=== PATIENT | female | born 1995 | race Caucasian/White ===

== ENCOUNTER 2017-03-25 17:46 | Emergency (ER) | payer MEDICAID ==
[2015-10-17 12:19] VITALS: BMI 39.0
[~2017-03-25 17:46] MED LIST: IBUPROFEN600 MG PO; PERCOCET 5-3251 TAB PO; PHENERGAN25 M1 PO; PRENATAL COMPLE1 TAB PO; PSEUDO-GEST60 MG PO
[2017-03-25 18:37] LABS: BASOPHILS 0.2 % (0-2); EOSINOPHILS 1.7 % (0-7); HEMATOCRIT 40.4 % (36.0-48.0); HEMOGLOBIN 13.3 g/dL (12-16); IMMATURE GRANULOCYTES 0.3 % (0-5); LYMPHOCYTES 18.9 % (15-50); MCHC 32.9 g/dL (31.0-37.0); MCV 88.2 fL (80.0-100.0); MEAN PLATELET VOLUME 10.1 fL (7.4-10.4); MONOCYTES 5.2 % (2-11); NEUTROPHILS 73.7 % (40-80); PLATELET COUNT 257 10x3/uL (130-400); RBC 4.58 10x6/uL (4.00-5.40); RDW 12.9 % (11.5-14.5); WBC 10.2 10x3/uL (4.8-10.8)
[2017-03-25 19:27] LABS: HCG SERUM NEGATIVE (NEGATIVE)
== END 2017-03-25 20:05 | disposition home or self-care (01) ==
LOC: D.ER 17:46
PROVIDERS: Emergency Medicine
DX: N93.9 Abnormal uterine and vaginal bleeding, unspecified (principal)

== ENCOUNTER 2017-09-26 16:40 | Emergency (ER) | payer MEDICAID ==
[2015-10-17 12:19] VITALS: BMI 39.0
[2017-09-26 17:31] LABS: BASOPHILS 0.1 % (0-2); EOSINOPHILS 1.4 % (0-7); HEMOGLOBIN 13.4 g/dL (12-16); IMMATURE GRANULOCYTES 0.3 % (0-5); LYMPHOCYTES 28.5 % (15-50); MCH 29.9 pg (26.0-34.0); MCHC 34.4 g/dL (31.0-37.0); MCV 87.1 fL (80.0-100.0); MEAN PLATELET VOLUME 9.9 fL (7.4-10.4); MONOCYTES 5.1 % (2-11); NEUTROPHILS 64.6 % (40-80); PLATELET COUNT 251 10x3/uL (130-400); RBC 4.48 10x6/uL (4.00-5.40); RDW 13.2 % (11.5-14.5); WBC 7.9 10x3/uL (4.8-10.8)
[2017-09-26 17:35] LABS: APPEARANCE CLEAR (CLEAR); BILIRUBIN NEGATIVE (NEGATIVE); COLOR STRAW (YELLOW); GLUCOSE NEGATIVE (NEGATIVE); KETONE NEGATIVE (NEGATIVE); NITRITE NEGATIVE (NEGATIVE); PROTEIN NEGATIVE (NEGATIVE); UROBILINOGEN NORMAL (NORMAL)
[2017-09-26 17:39] LABS: HCG SERUM NEGATIVE (NEGATIVE)
== END 2017-09-26 18:40 | disposition home or self-care (01) ==
LOC: D.ER 16:40
PROVIDERS: Emergency Medicine
DX: N94.6 Dysmenorrhea, unspecified (principal)

== ENCOUNTER 2017-10-08 11:33 | Emergency (ER) | payer MEDICAID ==
[2015-10-17 12:19] VITALS: BMI 39.0
[2017-10-08 12:32] LABS: HCG URINE NEGATIVE (NEGATIVE)
== END 2017-10-08 15:00 | disposition home or self-care (01) ==
LOC: D.ER 11:33
PROVIDERS: Nurse Practitioner Family
DX: R52 Pain, unspecified (principal); S69.91XA Unspecified injury of right wrist, hand and finger(s), initial encounter; Y04.2XXA Assault by strike against or bumped into by another person, initial encounter; Y93.89 Activity, other specified; Y92.89 Other specified places as the place of occurrence of the external cause

== ENCOUNTER 2017-10-19 17:29 | Emergency (ER) | payer MEDICAID ==
[2015-10-17 12:19] VITALS: BMI 39.0
== END 2017-10-19 19:10 | disposition home or self-care (01) ==
LOC: D.ER 17:29
DX: R10.30 Lower abdominal pain, unspecified (principal)

== ENCOUNTER 2019-01-13 12:16 | Emergency (ER) | payer MEDICAID ==
[~2019-01-13] VITALS: Ht 160 cm; Wt 77.3 kg
[2019-01-13 12:31] VITALS: BP 152/89; Ht 160 cm; Wt 77.3 kg
[2019-01-13 13:13] LABS: BASOPHILS 0.1 % (0-2); EOSINOPHILS 2.3 % (0-7); HEMATOCRIT 38.1 % (36.0-48.0); HEMOGLOBIN 13.5 g/dL (12-16); LYMPHOCYTES 21.8 % (15-50); MCH 30.3 pg (26.0-34.0); MCHC 35.4 g/dL (31.0-37.0); MCV 85.4 fL (80.0-100.0); NEUTROPHILS 68.8 % (40-80); PLATELET COUNT 230 10x3/uL (130-400); RBC 4.46 10x6/uL (4.00-5.40); RDW 12.1 % (11.5-14.5); WBC 7.4 10x3/uL (4.8-10.8)
[2019-01-13 13:22] LABS: APPEARANCE CLEAR (CLEAR); BILIRUBIN NEGATIVE (NEGATIVE); COLOR STRAW (YELLOW); GLUCOSE NEGATIVE (NEGATIVE); KETONE NEGATIVE (NEGATIVE); NITRITE NEGATIVE (NEGATIVE); PROTEIN NEGATIVE (NEGATIVE); SPECIFIC GRAVITY 1.015 (1.005-1.020); UROBILINOGEN NORMAL (NORMAL)
[2019-01-13 13:29] LABS: ALBUMIN 3.8 g/dL (3.4-5.0); ANION GAP 15.4 mmol/L (8-16); BILIRUBIN - TOTAL 0.27 mg/dL (0.2-1.3); CALCIUM 9.5 mg/dL (8.5-10.1); CARBON DIOXIDE 26.3 mmol/L (21.0-32.0); CREATININE - SERUM 1.3 mg/dL (0.6-1.3); POTASSIUM - SERUM 3.7 mmol/L (3.5-5.1); PROTEIN - SERUM 7.4 g/dL (6.4-8.2)
== END 2019-01-13 16:29 | disposition home or self-care (01) ==
LOC: D.ER 12:16
PROVIDERS: Emergency Medicine
DX: O26.891 Other specified pregnancy related conditions, first trimester (principal); Z3A.08 8 weeks gestation of pregnancy; R10.2 Pelvic and perineal pain

== ENCOUNTER → 2019-07-07 15:04 | Outpatient (CLI) | payer MEDICAID ==
[2019-01-13 12:31] VITALS: BMI 30.1
[~2019-07-07 15:04] MED LIST changes: +AMOXICILLIN500 M1 PO
[2019-07-07 16:24] LABS: ALBUMIN 2.5 g/dL (3.4-5.0); ALKALINE PHOSPHATASE 188 U/L (46-116); ALT (SGPT) 88 U/L (10-68); BILIRUBIN - TOTAL 0.34 mg/dL (0.2-1.3); CALC OSMOLALITY 271 mosm/kg (275-300); CALCIUM 9.2 mg/dL (8.5-10.1); CARBON DIOXIDE 22.3 mmol/L (21.0-32.0); CHLORIDE - SERUM 104 mmol/L (98-107); CREATININE - SERUM 0.6 mg/dL (0.6-1.3); POTASSIUM - SERUM 3.8 mmol/L (3.5-5.1); PROTEIN - SERUM 6.9 g/dL (6.4-8.2); SODIUM 138 mmol/L (136-145); UREA NITROGEN 8 mg/dL (7-18); eGFR NON AFRICAN AMERICAN > 90 mL/min (90-120)
[2019-07-07 16:26] LABS: BILIRUBIN - DIRECT 0.09 mg/dL (0.00-0.30); BILIRUBIN - INDIRECT 0.25 mg/dL (0.00-1.00); URIC ACID 4.1 mg/dL (2.6-7.2)
[2019-07-07 16:27] LABS: GLUCOSE 70 mg/dL (74-106)
[2019-07-07 16:33] LABS: BASOPHILS 0.1 % (0-2); EOSINOPHILS 0.4 % (0-7); HEMATOCRIT 35.6 % (36.0-48.0); HEMOGLOBIN 12.3 g/dL (12-16); IMMATURE GRANULOCYTES 0.4 % (0-5); LYMPHOCYTES 13.2 % (15-50); MCH 28.6 pg (26.0-34.0); MCHC 34.6 g/dL (31.0-37.0); MCV 82.8 fL (80.0-100.0); MEAN PLATELET VOLUME 10.2 fL (7.4-10.4); MONOCYTES 4.8 % (2-11); NEUTROPHILS 81.1 % (40-80); PLATELET COUNT 243 10x3/uL (130-400); RDW 12.3 % (11.5-14.5); WBC 10.2 10x3/uL (4.8-10.8)
[2019-07-08 15:31] LABS: PROTEIN - URINE 13.4 mg/dL (0.0-11.9)
== END | disposition home or self-care (01) ==
LOC: D.LDO 15:04
PROVIDERS: ATTEND Student in an Organized Health Care Education/Training Program
DX: O26.899 Other specified pregnancy related conditions, unspecified trimester (principal); Z3A.00 Weeks of gestation of pregnancy not specified

== ENCOUNTER → 2019-07-08 14:34 | Outpatient (CLI) | payer MEDICAID ==
[2019-01-13 12:31] VITALS: BMI 30.1
== END | disposition home or self-care (01) ==
LOC: D.LDO 14:34
PROVIDERS: ATTEND Student in an Organized Health Care Education/Training Program
DX: O26.893 Other specified pregnancy related conditions, third trimester (principal); Z3A.30 30 weeks gestation of pregnancy; R03.0 Elevated blood-pressure reading, without diagnosis of hypertension

== ENCOUNTER → 2019-07-20 20:19 | Outpatient (CLI) | payer MEDICAID ==
[2019-01-13 12:31] VITALS: BMI 30.1
[2019-07-20 21:15] LABS: APPEARANCE CLEAR (CLEAR); BILIRUBIN NEGATIVE (NEGATIVE); COLOR YELLOW (YELLOW); GLUCOSE NEGATIVE (NEGATIVE); KETONE NEGATIVE (NEGATIVE); NITRITE NEGATIVE (NEGATIVE); PROTEIN NEGATIVE (NEGATIVE); UROBILINOGEN NORMAL (NORMAL)
[2019-07-20 21:16] LABS: BACTERIA MANY /hpf (NONE SEEN); EPITHELIAL CELLS 0-5 /hpf (0-5); RED CELLS - URINE OCC /hpf (0-5); WHITE CELLS - URINE 0-5 /hpf (0-5)
== END | disposition home or self-care (01) ==
LOC: D.LDO 20:19
PROVIDERS: ATTEND Obstetrics & Gynecology
DX: O26.899 Other specified pregnancy related conditions, unspecified trimester (principal); Z3A.00 Weeks of gestation of pregnancy not specified

== ENCOUNTER 2019-07-21 14:51 | Outpatient (CLI) | payer MEDICAID ==
[2019-01-13 12:31] VITALS: BMI 30.1
[~2019-07-21 14:51] MED LIST changes: -AMOXICILLIN500 M1 PO
[2019-07-21 15:13] LABS: BASOPHILS 0.1 % (0-2); HEMATOCRIT 34.1 % (36.0-48.0); HEMOGLOBIN 11.7 g/dL (12-16); IMMATURE GRANULOCYTES 0.5 % (0-5); LYMPHOCYTES 16.8 % (15-50); MCH 28.3 pg (26.0-34.0); MCHC 34.3 g/dL (31.0-37.0); MCV 82.4 fL (80.0-100.0); MEAN PLATELET VOLUME 9.9 fL (7.4-10.4); MONOCYTES 4.9 % (2-11); NEUTROPHILS 76.7 % (40-80); PLATELET COUNT 204 10x3/uL (130-400); RBC 4.14 10x6/uL (4.00-5.40); RDW 12.5 % (11.5-14.5); WBC 9.2 10x3/uL (4.8-10.8)
[2019-07-21 15:26] LABS: ALBUMIN 0.6 g/dL (3.4-5.0); ALKALINE PHOSPHATASE 99 U/L (46-116); BILIRUBIN - DIRECT 0.05 mg/dL (0.00-0.30); CARBON DIOXIDE 17.2 mmol/L (21.0-32.0); URIC ACID 0.4 mg/dL (2.6-7.2)
[2019-07-21 15:38] LABS: ALT (SGPT) 65 U/L (10-68); BILIRUBIN - INDIRECT 0.38 mg/dL (0.00-1.00); BILIRUBIN - TOTAL 0.43 mg/dL (0.2-1.3); CHLORIDE - SERUM 104 mmol/L (98-107); CREATININE - SERUM 0.5 mg/dL (0.6-1.3); PROTEIN - SERUM 6.1 g/dL (6.4-8.2); SODIUM 137 mmol/L (136-145); eGFR NON AFRICAN AMERICAN > 90 mL/min (90-120)
[2019-07-21 15:47] LABS: CALC OSMOLALITY 269 mosm/kg (275-300); CALCIUM 8.2 mg/dL (8.5-10.1); GLUCOSE 71 mg/dL (74-106); UREA NITROGEN 7 mg/dL (7-18)
[2019-07-21] MEDS ORDERED: AMOXICILLIN500 M1 PO (18:41)
[2019-07-21 19:33] LABS: APPEARANCE CLEAR (CLEAR); BILIRUBIN NEGATIVE (NEGATIVE); COLOR YELLOW (YELLOW); GLUCOSE NEGATIVE (NEGATIVE); KETONE MODERATE mg/dL (NEGATIVE); NITRITE NEGATIVE (NEGATIVE); PROTEIN NEGATIVE (NEGATIVE); UROBILINOGEN NORMAL (NORMAL)
--- NOTE | 2019-07-21 20:21 | NUR ---
PT GIVEN NORCO FOR PAIN AT THIS TIME. IV SALINE LOCKED. FUNDUS FIRM AND DECIATED TO RIGHT AT THIS TIME. MODERATE LOCHIA NOTED. ICE PACK TO PERINEUM PLACED. PT ATTEMPTED TO VOID AT THIS TIME BUT UNABLE. NO ACUTE DISTRESS NOTED. SIDERAILS UP FOR SAFETY. CALL LIGHT IN PT REACH. Oly STOCKTON RN
--- NOTE | 2019-07-21 21:45 | NUR ---
PT AMBULATORY TO BATHROOM AT THIS TIME. VOIDED 400 ML OF URINE. PERICARE PROVIDED. Oly STOCKTON RN
--- NOTE | 2019-07-21 22:00 | NUR ---
PT AMBULATORY TO ROOM 1273 AT THIS TIME. NO DISTRESS NOTED. PT WANTING TO SHOWER AT THIS TIME. Oly STOCKTON RN
[2019-07-22 07:27] LABS: APPEARANCE HAZY (CLEAR); BACTERIA MODERATE /hpf (NONE SEEN); BILIRUBIN NEGATIVE (NEGATIVE); COLOR YELLOW (YELLOW); EPITHELIAL CELLS 0-5 /hpf (0-5); GLUCOSE NEGATIVE (NEGATIVE); KETONE NEGATIVE (NEGATIVE); MUCUS <1+ /lpf (NONE SEEN); NITRITE NEGATIVE (NEGATIVE); PROTEIN NEGATIVE (NEGATIVE); WHITE CELLS - URINE 0-5 /hpf (0-5)
== END 2019-07-22 08:10 | disposition home or self-care (01) ==
LOC: D.LDO 14:51 → D.LD 22:46 → D.LDO 07-22 08:10
PROVIDERS: Obstetrics & Gynecology; ATTEND Student in an Organized Health Care Education/Training Program
DX: O26.899 Other specified pregnancy related conditions, unspecified trimester (principal); Z3A.00 Weeks of gestation of pregnancy not specified

== ENCOUNTER → 2019-08-04 16:06 | Outpatient (CLI) | payer MEDICAID ==
[2019-01-13 12:31] VITALS: BMI 30.1
[~2019-08-04 16:06] MED LIST changes: +AMOXICILLIN500 M1 PO
[2019-08-04 16:59] LABS: BASOPHILS 0 % (0-2); EOSINOPHILS 0.5 % (0-7); HEMATOCRIT 33.1 % (36.0-48.0); HEMOGLOBIN 11.3 g/dL (12-16); IMMATURE GRANULOCYTES 0.5 % (0-5); LYMPHOCYTES 12.9 % (15-50); MCH 27.7 pg (26.0-34.0); MCHC 34.1 g/dL (31.0-37.0); MCV 81.1 fL (80.0-100.0); MONOCYTES 5.1 % (2-11); PLATELET COUNT 228 10x3/uL (130-400); RBC 4.08 10x6/uL (4.00-5.40); RDW 12.8 % (11.5-14.5); WBC 11.1 10x3/uL (4.8-10.8)
[2019-08-04 17:21] LABS: ALBUMIN 2.3 g/dL (3.4-5.0); ALKALINE PHOSPHATASE 179 U/L (46-116); ALT (SGPT) 28 U/L (10-68); BILIRUBIN - INDIRECT 0.25 mg/dL (0.00-1.00); BILIRUBIN - TOTAL 0.35 mg/dL (0.2-1.3); CALC OSMOLALITY 270 mosm/kg (275-300); CALCIUM 8.8 mg/dL (8.5-10.1); CARBON DIOXIDE 22.9 mmol/L (21.0-32.0); CHLORIDE - SERUM 105 mmol/L (98-107); CREATININE - SERUM 0.5 mg/dL (0.6-1.3); GLUCOSE 75 mg/dL (74-106); POTASSIUM - SERUM 3.8 mmol/L (3.5-5.1); PROTEIN - SERUM 6.6 g/dL (6.4-8.2); SODIUM 137 mmol/L (136-145); UREA NITROGEN 8 mg/dL (7-18); URIC ACID 4.2 mg/dL (2.6-7.2); eGFR NON AFRICAN AMERICAN > 90 mL/min (90-120)
== END | disposition home or self-care (01) ==
LOC: D.LDO 16:06
PROVIDERS: ATTEND Obstetrics & Gynecology
DX: O26.893 Other specified pregnancy related conditions, third trimester (principal); Z3A.34 34 weeks gestation of pregnancy; R03.0 Elevated blood-pressure reading, without diagnosis of hypertension

== ENCOUNTER → 2019-08-18 14:22 | Outpatient (CLI) | payer MEDICAID ==
[2019-01-13 12:31] VITALS: BMI 30.1
[2019-08-18 15:39] LABS: BASOPHILS 0.1 % (0-2); EOSINOPHILS 0.7 % (0-7); HEMATOCRIT 32.1 % (36.0-48.0); HEMOGLOBIN 10.8 g/dL (12-16); IMMATURE GRANULOCYTES 0.3 % (0-5); LYMPHOCYTES 15.9 % (15-50); MCH 27.1 pg (26.0-34.0); MCHC 33.6 g/dL (31.0-37.0); MCV 80.7 fL (80.0-100.0); MONOCYTES 4.9 % (2-11); NEUTROPHILS 78.1 % (40-80); PLATELET COUNT 222 10x3/uL (130-400); RBC 3.98 10x6/uL (4.00-5.40); RDW 12.9 % (11.5-14.5); WBC 8.6 10x3/uL (4.8-10.8)
[2019-08-18 16:21] LABS: ALBUMIN 2.2 g/dL (3.4-5.0); ALKALINE PHOSPHATASE 168 U/L (46-116); ALT (SGPT) 19 U/L (10-68); BILIRUBIN - INDIRECT 0.19 mg/dL (0.00-1.00); BILIRUBIN - TOTAL 0.22 mg/dL (0.2-1.3); CALC OSMOLALITY 276 mosm/kg (275-300); CALCIUM 9.7 mg/dL (8.5-10.1); CARBON DIOXIDE 24.3 mmol/L (21.0-32.0); CHLORIDE - SERUM 104 mmol/L (98-107); CREATININE - SERUM 0.5 mg/dL (0.6-1.3); GLUCOSE 74 mg/dL (74-106); POTASSIUM - SERUM 4.2 mmol/L (3.5-5.1); PROTEIN - SERUM 5.8 g/dL (6.4-8.2); SODIUM 139 mmol/L (136-145); UREA NITROGEN 12 mg/dL (7-18); URIC ACID 4.2 mg/dL (2.6-7.2); eGFR NON AFRICAN AMERICAN > 90 mL/min (90-120)
[2019-08-18 16:27] LABS: BILIRUBIN - DIRECT 0.03 mg/dL (0.00-0.30)
[2019-08-20 12:23] LABS: PROTEIN - URINE 13.5 mg/dL (0.0-11.9)
== END | disposition home or self-care (01) ==
LOC: D.LDO 14:22
PROVIDERS: ATTEND Obstetrics & Gynecology
DX: O10.913 Unspecified pre-existing hypertension complicating pregnancy, third trimester (principal); Z3A.36 36 weeks gestation of pregnancy

== ENCOUNTER 2019-08-24 15:12 | Outpatient (CLI) | payer MEDICAID ==
[2019-01-13 12:31] VITALS: BMI 30.1
[2019-08-24 15:55] LABS: ALBUMIN 2.2 g/dL (3.4-5.0); ALKALINE PHOSPHATASE 189 U/L (46-116); ALT (SGPT) 22 U/L (10-68); BASOPHILS 0.1 % (0-2); BILIRUBIN - INDIRECT 0.18 mg/dL (0.00-1.00); BILIRUBIN - TOTAL 0.22 mg/dL (0.2-1.3); CALC OSMOLALITY 273 mosm/kg (275-300); CALCIUM 8.8 mg/dL (8.5-10.1); CARBON DIOXIDE 24.3 mmol/L (21.0-32.0); CHLORIDE - SERUM 105 mmol/L (98-107); CREATININE - SERUM 0.7 mg/dL (0.6-1.3); EOSINOPHILS 0.6 % (0-7); GLUCOSE 92 mg/dL (74-106); HEMATOCRIT 32.4 % (36.0-48.0); HEMOGLOBIN 10.5 g/dL (12-16); IMMATURE GRANULOCYTES 0.4 % (0-5); LYMPHOCYTES 13.7 % (15-50); MCH 26.8 pg (26.0-34.0); MCHC 32.4 g/dL (31.0-37.0); MCV 82.7 fL (80.0-100.0); MEAN PLATELET VOLUME 10.4 fL (7.4-10.4); MONOCYTES 4.3 % (2-11); NEUTROPHILS 80.9 % (40-80); PLATELET COUNT 256 10x3/uL (130-400); POTASSIUM - SERUM 3.9 mmol/L (3.5-5.1); PROTEIN - SERUM 6.3 g/dL (6.4-8.2); RBC 3.92 10x6/uL (4.00-5.40); RDW 13.1 % (11.5-14.5); SODIUM 137 mmol/L (136-145); UREA NITROGEN 12 mg/dL (7-18); URIC ACID 5.2 mg/dL (2.6-7.2); WBC 8.3 10x3/uL (4.8-10.8); eGFR NON AFRICAN AMERICAN > 90 mL/min (90-120)
[2019-08-24 15:56] LABS: BILIRUBIN - DIRECT 0.04 mg/dL (0.00-0.30)
[2019-08-25 18:32] LABS: PROTEIN - URINE 14.6 mg/dL (0.0-11.9)
== END 2019-08-24 16:37 ==
LOC: D.LDO 15:12
PROVIDERS: ATTEND Obstetrics & Gynecology
DX: O26.893 Other specified pregnancy related conditions, third trimester (principal); Z3A.37 37 weeks gestation of pregnancy; R03.0 Elevated blood-pressure reading, without diagnosis of hypertension

== ENCOUNTER 2019-08-30 11:59 | Inpatient (IN) | payer MEDICAID ==
[~2019-08-30] VITALS: Ht 160 cm; Wt 97.5 kg
--- NOTE | ~2019-08-30 | DS ---
PATIENT:JAME PAYNE :89 MEDICAL RECORD: [id number] DISCHARGE SUMMARY ADMISSION DATE: 08/30/19 DISCHARGE DATE: 09/01/19 HISTORY OF PRESENT ILLNESS: The patient was admitted on 08/30/2019. A 23-year-old G5, P1 at 38 weeks and 3 days, admitted at 38 weeks with a previous section in labor. The patient was noted to be A negative, group B strep negative, and rubella immune. PAST MEDICAL HISTORY: Significant for: 1. Anxiety. 2. Bipolar. 3. Eating disorder. SURGICAL HISTORY: The patient reported a surgical history significant for previous and surgery for a broken arm. ALLERGIES: The patient reported no allergies. MEDICATIONS: Include vitamins and amoxicillin. FAMILY HISTORY: The patient reported no significant family history. SOCIAL HISTORY: Positive for marijuana. PHYSICAL EXAMINATION: VITAL SIGNS: Stable. The patient was afebrile and normotensive. LUNGS: Clear to auscultation. CARDIOVASCULAR: Regular rate and rhythm. PELVIC: Uterus appropriately sized and nontender. EXTREMITIES: Lower extremities were free of erythema, swelling and Homans sign. wellbeing was reassuring with a 140 baseline with moderate variability. The patient noted to be having regular uterine contractions. LABORATORY DATA: Admit hemoglobin was found to be 11.4 with a white blood cell count 10.5. ASSESSMENT AND PLAN: At that time: 1. Gestational hypertension at 38 weeks and 3 days. 2. History of previous section. 3. Regular contractions. 4. Worsening blood pressures. 5. Depression, anxiety, bipolar. 6. History of HSV. 7. Marijuana abuse. Plan at that time for repeat and tubal ligation. Risks including risk of tubal failure were discussed with the patient. The patient voiced understanding and consent. wellbeing was reassuring with category 1 tracing. Operative report is as dictated. HOSPITAL COURSE: The patient did well overnight on postop day #0, with a Dilaudid ELEMENTARY SCHOOL PROFESSIONAL, IV Toradol, IV fluids, tolerating clear liquid diet. A Aparicio catheter was in place. Urine output overnight was found to be adequate. [facility] DISCHARGE SUMMARY REPORT [id number] JAME PAYNE were on and functioning normally. On the morning of postop day #1, status post repeat low transverse section and bilateral tubal ligation via modified Uchida procedure, the patient continued to do well. Vital signs were stable. The patient was afebrile and normotensive. Hemoglobin was found to be stable. The incision was clean, dry and intact. Uterus was infraumbilical and appropriately tender. Lower extremities were free of Homans sign, erythema, or swelling. The patient was advanced to general diet and p.o. pain meds. Aparicio catheter was discontinued and ambulation begun. The patient did well on p.o. pain meds, ambulating and voiding freely during the day on postop day #1. On the morning of postop day #2, the patient continued to improve, tolerating general diet, p.o. pain meds. The patient remained afebrile and normotensive. Uterus was infraumbilical. Incision was clean, dry and intact. The patient reported minimal lochia only. The patient was ambulating and voiding freely. The patient was discharged home on postop day #2 with instructions to follow up the next week for wound check. TRANSINT:[id number] Voice Confirmation ID: [id number] DOCUMENT ID: [id number] KORINA SHAW MD CC: [id number] DICTATION DATE: 10/29/19153 BLACKJACK DEALER: 10/29/19729 DIS IN 09/01/19 [facility] [address] [id number]
[2019-08-30 12:52] LABS: APPEARANCE HAZY (CLEAR); BILIRUBIN NEGATIVE (NEGATIVE); COLOR YELLOW (YELLOW); GLUCOSE NEGATIVE (NEGATIVE); KETONE NEGATIVE (NEGATIVE); NITRITE NEGATIVE (NEGATIVE); PROTEIN TRACE mg/dL (NEGATIVE); SPECIFIC GRAVITY 1.015 (1.005-1.020); UROBILINOGEN NORMAL (NORMAL)
[2019-08-30 12:54] LABS: BACTERIA FEW /hpf (NEGATIVE); EPITHELIAL CELLS 0-5 /hpf (0-5); RED CELLS - URINE NONE SEEN /hpf (0-5); WHITE CELLS - URINE 0-5 /hpf (NEGATIVE)
[2019-08-30 13:44] LABS: BASOPHILS 0.1 % (0-2); EOSINOPHILS 0.8 % (0-7); HEMATOCRIT 35.4 % (36.0-48.0); HEMOGLOBIN 11.4 g/dL (12-16); IMMATURE GRANULOCYTES 0.4 % (0-5); LYMPHOCYTES 13.4 % (15-50); MCH 26.8 pg (26.0-34.0); MCHC 32.2 g/dL (31.0-37.0); MCV 83.1 fL (80.0-100.0); MONOCYTES 4.8 % (2-11); NEUTROPHILS 80.5 % (40-80); PLATELET COUNT 233 10x3/uL (130-400); RBC 4.26 10x6/uL (4.00-5.40); RDW 13.4 % (11.5-14.5); WBC 10.5 10x3/uL (4.8-10.8)
[2019-08-30 14:00] LABS: ALBUMIN 2.2 g/dL (3.4-5.0); ALKALINE PHOSPHATASE 215 U/L (46-116); ALT (SGPT) 23 U/L (10-68); BILIRUBIN - DIRECT 0.08 mg/dL (0.00-0.30); BILIRUBIN - INDIRECT 0.13 mg/dL (0.00-1.00); BILIRUBIN - TOTAL 0.21 mg/dL (0.2-1.3); CALC OSMOLALITY 271 mosm/kg (275-300); CALCIUM 8.7 mg/dL (8.5-10.1); CARBON DIOXIDE 23.1 mmol/L (21.0-32.0); CHLORIDE - SERUM 104 mmol/L (98-107); CREATININE - SERUM 0.5 mg/dL (0.6-1.3); GLUCOSE 75 mg/dL (74-106); POTASSIUM - SERUM 4.2 mmol/L (3.5-5.1); PROTEIN - SERUM 5.9 g/dL (6.4-8.2); SODIUM 137 mmol/L (136-145); UREA NITROGEN 11 mg/dL (7-18); URIC ACID 4.8 mg/dL (2.6-7.2); eGFR NON AFRICAN AMERICAN > 90 mL/min (90-120)
[2019-08-30 15:13] VITALS: BP 132/85; BMI 38.1
[2019-08-30 17:29] LABS: UDS - AMPHET NEGATIVE QUAL (NEGATIVE); UDS - BARB NEGATIVE QUAL (NEGATIVE); UDS - BENZO NEGATIVE QUAL (NEGATIVE); UDS - COCAINE NEGATIVE QUAL (NEGATIVE); UDS - OPIATE NEGATIVE QUAL (NEGATIVE); UDS - PCP NEGATIVE QUAL (NEGATIVE); UDS - THC NEGATIVE QUAL (NEGATIVE)
--- NOTE | 2019-08-30 17:37 | NUR ---
ANESTHESIA GAS SPECIALIST BJ GAVE 2MG OF DIALAUDID IN OR ROOM. SEE ANESTHESIA GREEN SHEET
[2019-08-30 18:00] VITALS: BP 102/69
--- NOTE | 2019-08-30 18:00 | NUR ---
REC'D PT BACK FROM RECOVERY POSTOP REPEAT C-SCTION
--- NOTE | 2019-08-30 18:15 | NUR ---
FUNDUS FIRM,U/2, SMALL RUBRA LOCHIA NOTED. NO CLOTS EXPRESSED W/MASSAGE. MULTIPLE FAMILY MEMBERS AT BEDSIDE ATTEMPTING TO HELP PT W/.
--- NOTE | 2019-08-30 18:21 | NUR ---
TORADOL 30MG SIVP GIVEN. DILUADID LYFT DRIVER INITATED. BUTTON AT PT'S SIDE.
--- NOTE | 2019-08-30 18:30 | NUR ---
FUNDUS FIRM,U/2, SMALL RUBRA LOCHIA NOTED. PERIPAD CHANGED AT THIS TIME. FAMILY REMAIN AT BEDSIDE FOR ASSISTANCE. PT HAS A CLEAR LIQUID DIET AT BEDSIDE.
--- NOTE | 2019-08-30 19:15 | NUR ---
PM ROUNDS MADE, PT VISITING WITH FAMILY, INFORMED PT THAT I WILL BE BACK SHORTLY TO DO ASSESSMENT, PT VERBALIZES UNDERSTANDING, RATES INC PAIN 1-01/03, REQUESTED AND SERVED FRESH H20, PT DENIES FURTHER NEEDS
--- NOTE | 2019-08-30 19:45 | NUR ---
NEW BAG OF NS WITH PITOCIN HUNG INFUSING VIA PUMP AT 125 ML/HR, SCD'S NOTED TO BE OFF, SCD'S CONNECTED TO PUMP AND WORKING PROPERLY, PT DENIES NEEDS AT THIS TIME, FAMILY AT BEDSIDE
[2019-08-30 20:10] VITALS: BP 134/75
--- NOTE | 2019-08-30 20:10 | NUR ---
ASSESSMENT PER FLOW SHEET, VS OBTAINED, IV IN RIGHT WRIST INTACT WITH NO REDNESS OR EDEMA, NS WITH PITOCIN INFUSING PER MD ORDERS, SEE EMAR, FF, ML, U/1, MOD BLEEDING NOTED WITH A FEW SMALL CLOTS, JUSTIN CARE DONE WITH WET WARM WASH CLOTHS, WHITE CHUX AND JUSTIN PAD CHANGED, BIKINI INC WITH SMALL DRESSING CDI WITH NO DRAIANGE NOTED, ICE PACK TO ABD, CHOWDHURY CATH INTACT, NEW STATLOCK PLACED, EMPTIED 400 MLS OF DARK YELLOW URINE, ENC PT TO DRINK PLENTY OF FLUIDS, PT STATES "OH, I KEEP FORGETTING, I'M SO USED TO NOT DRINKING A LOT BECAUSE I HAVE TO PEE SO MUCH, BUT I CAN DRINK MORE SINCE I HAVE THIS CATHETER", PT SERVED FRESH H20, PT REPORTS FLATUS, PT RATES INC PAIN 1-01/03, PT INST ON AND VERBALIZES UNDERSTANDING OF DILAUDID PHARMACY INTAKE TECHNICIAN, SCD'S CONTINUE ON AND WORKING PROPERLY, PT INST ON AND DEMONSTRATED I.S. WITH GOOD EFFORT, SMALL SPLINT PILLOW PROVIDED, PT DENIES NEEDS AT THIS TIME, FOB AT BEDSIDE
[2019-08-30 20:25] VITALS: BP 131/71
[2019-08-30 20:40] VITALS: BP 130/77
[2019-08-30 21:05] VITALS: BP 134/74
--- NOTE | 2019-08-30 21:20 | NUR ---
PT HOLDING , FOB AT BEDSIDE, TO FOB'S ARMS AT THIS TIME, CHECKED FUNDUS, FIRM, U/1, NO VAG BLEEDING OR CLOTS NOTED AT THIS TIME, PT SERVED FRESH H20, DENIES FURTHER NEEDS, BACK TO PT'S ARMS
[2019-08-30 21:48] LABS: BASOPHILS 0.1 % (0-2); EOSINOPHILS 0.2 % (0-7); HEMOGLOBIN 10.5 g/dL (12-16); IMMATURE GRANULOCYTES 0.3 % (0-5); LYMPHOCYTES 8.2 % (15-50); MCH 26.5 pg (26.0-34.0); MCHC 31.8 g/dL (31.0-37.0); MCV 83.3 fL (80.0-100.0); MEAN PLATELET VOLUME 10.6 fL (7.4-10.4); MONOCYTES 4.7 % (2-11); NEUTROPHILS 86.5 % (40-80); PLATELET COUNT 207 10x3/uL (130-400); RBC 3.96 10x6/uL (4.00-5.40); RDW 13.2 % (11.5-14.5)
[2019-08-30 21:59] LABS: WBC 15.2 10x3/uL (4.8-10.8)
--- NOTE | 2019-08-30 22:33 | NUR ---
PT MOBILE NURSE LIGHT, REQUESTED AND PROIVDED FOB BEDDING, PT RATES INC PAIN 1-01/03, PT ENC TO DRINK PLENTY OF FLUIDS, PT VERBALIZES UNDERSTANDING, DENIES FURTHER NEEDS
[2019-08-31 00:10] VITALS: BP 118/74
--- NOTE | 2019-08-31 00:10 | NUR ---
PT RESTING WITH EYES CLOSED, AROUSES TO SOFT VERBAL STIMULATION, VS OBTAINED, CHOWDHURY DRAINING DARK URINE, PT ENC TO DRINK, FRESH H20 SERVED, FF, ML, U/1, CHECKED PER CLARISSA LAZAR RN, MOD BLEEDING NOTED WITH NO CLOTS, JUSTIN CARE DONE WITH WET WARM WASH CLOTHS, WHITE CHUX AND JUSTIN PAD CHANGED, FRESH ICE PACK TO ABD, PT RATES INC PAIN 1-2/10, SCD'S CONTINUE ON AND WORKING PROPERLY, PT DENIES FURTHER NEEDS, FOB AT BEDSIDE
--- NOTE | 2019-08-31 00:34 | NUR ---
INFANT TO ROOM PER CHRISTOPHER VELIZ LPN, ASSISTS PT WITH , NEW VIAL OF DILAUDID TO ACCOUNT EXECUTIVE AGRIBUSINESS PER MD ORDERS, SEE EMAR, FOB AT BEDSIDE
--- NOTE | 2019-08-31 01:43 | NUR ---
DR SHAW PAGED
--- NOTE | 2019-08-31 01:45 | NUR ---
DR SHAW CALLS UNIT, REPORT OF LOW OUTPUT, VS, AND LAB, NO ORDERS RECEIVED
--- NOTE | 2019-08-31 02:20 | NUR ---
PT HOLDING , RATES INC PAIN 1-01/03, USING TEMPLER HEAD INST, SCD'S CONTINUE ON AND WORKING PROPERLY, ENC CONTINUATION OF FLUIDS, FRESH H20 SERVED, INFORMED PT THAT I WILL COME BACK AROUND 4:30 TO DO VS, JUSTIN CARE, AND EMPTY CHOWDHURY, PT STATES "THAT'LL BE GOOD, I'M JUST ABOUT READY TO GET SOME REST", PT DENIES FURTHER NEEDS, FOB AT BEDSIDE
--- NOTE | 2019-08-31 03:26 | NUR ---
PT GRAB DRIVER LIGHT, IV BEEPING, NEW BAG OF NS WITH PITOCIN HUNG PER MD ORDERS, SEE EMAR, FOB AT BEDSIDE, INFANT IN NSY
--- NOTE | 2019-08-31 04:50 | NUR ---
INFANT IN OPEN CRIB CART, PINK, RESP UNLABORED, NO SIGNS OR SYMPTONS OF DISTRESST, TO MOM FOR FEEDING, BANDS CHECKED
--- NOTE | 2019-08-31 05:30 | NUR ---
PT , EMPTIED CHOWDHURY, COLLECTED I&O'S, INFORMED PT THAT I WILL COME BACK TO DO VS AND JUSTIN CARE WHEN FINISHED , PT VERBALIZES UNDERSTANDING, DENIES NEEDS AT THIS TIME, FOB AT BEDSIDE
[2019-08-31 06:10] VITALS: BP 112/74
--- NOTE | 2019-08-31 06:10 | NUR ---
PT FINISHED , VS OBTAINED, LAB TO ROOM FOR AM BLOOD DRAW, PT SERVED FRESH H20 AND SNACK BOX, FOB AT BEDSIDE
--- NOTE | 2019-08-31 06:28 | NUR ---
LITE BLEEDING NOTED WITH NO CLOTS, WHITE CHUX AND JUSTIN PAD CHANGED, SCD'S CONTINUE ON AND WORKING PROPERLY, PT REFUSES ICE PACK AT THIS TIME, RATES INC PAIN 1-2/10
[2019-08-31 06:45] LABS: BASOPHILS 0 % (0-2); EOSINOPHILS 0.5 % (0-7); HEMATOCRIT 31.5 % (36.0-48.0); IMMATURE GRANULOCYTES 0.2 % (0-5); LYMPHOCYTES 11.5 % (15-50); MCH 26.4 pg (26.0-34.0); MCHC 31.7 g/dL (31.0-37.0); MCV 83.1 fL (80.0-100.0); MEAN PLATELET VOLUME 10.4 fL (7.4-10.4); MONOCYTES 5.1 % (2-11); NEUTROPHILS 82.7 % (40-80); PLATELET COUNT 177 10x3/uL (130-400); RBC 3.79 10x6/uL (4.00-5.40); RDW 13.4 % (11.5-14.5)
--- NOTE | 2019-08-31 07:10 | NUR ---
DR SHAW TO ROOM.
[2019-08-31 07:13] LABS: RAPID PLASMA REAGIN Non Reactive (Non Reactive)
[2019-08-31 07:15] VITALS: BP 111/66
--- NOTE | 2019-08-31 07:15 | NUR ---
RECEIVED PT LYING IN SEMI-INIGUEZ'S POSITION IN BED. WAKES UPON ENTERING ROOM. VSS. HRRR WITHOUT AUDIBLE MURMUR. BBS CLEAR. BS X 4. ABDOMEN SOFT/NON-DISTENDED. FUNDUS FIRM AT U/2. RUBRA LOCHIA SCANT AMT. NO CLOTS NOTED. ABDOMINAL DRESSING DRY WITHOUT DRAINAGE NOTED. PT STATES PASSING GAS. NEG HOMANS' SIGN. PPP. MILD NON-PITTING EDEMA NOTED TO BLE. PIV OF NS WITH PITOCIN 20 UNITS INFUSING AT 125 ML/HR TO RIGHT WRIST. SITE CLEAR. DILAUDID SLACKLINE OPERATOR INFUSING PER ALARIS PUMP ORDERED. PT STATES PAIN OF "4" ON 0-10 PAIN SCALE. TORADOL 30 MG GIVEN SIVP OVER 2 MINUTES. PT INSTRUCTED ON MED. VERBALIZES UNDERSTANDING. CLEAR LIQUID DIET SERVED. SR UP X 2. CALL LIGHT IN REACH.
--- NOTE | 2019-08-31 08:18 | NUR ---
PT SITTING UP IN BED. INFANT. DENIES NEEDS OR C/O.
--- NOTE | 2019-08-31 08:25 | NUR ---
DR SHAW NOTIFIED TANDEM MILL ROLLER EMPTY. ORDERS RECEIVED.
--- NOTE | 2019-08-31 08:39 | NUR ---
Lexi Browne 08/31/2018 S: Client states this is her first baby that she is . States baby has been latching for about 10 minutes but will fall asleep after and it's hard to wake baby to continue feeding. She has been pumping one breast at a time if won't latch. States she delivered by and is tired. States she plan is just to work with infant on getting to latch longer for feedings. She fed baby on the right breast for 10 minutes. She changed him over to the left breast and he won't wake to feed. Verbally agrees to contact nursing staff for concerns or questions. O: Patient sitting up in attempting to breastfeed infant on the right breast. is being held in cradle position and is sleeping and appears content. Family member in room at bedside. Praised for and asked how can I help with , what questions do you have regarding . Informed patient takes time, practice, and patience. Explained breastmilk composition, supply and demand, infant feeding cues, the importance of practicing responsive feeding to help with establishing your milk supply, the benefits of skin to skin, how to verify is latched correctly at the breast, and positions. Provided tips on how to stimulate infant to wake to feed. Allow to remain latched as long as he prefers if he is actively sucking at the breast. When infant stops or comes off the breast, you can burp infant, try to stimulate, and offer the other breast. CLC attempted to wake infant. will open his eyes for a few minutes and fall back asleep. Showed patient with how to hold in laid back position to help with latch. starts to route at the breast but quickly falls asleep. It is normal for to be tired and want to sleep also. Explained normal feeding patterns for an exclusively breastfed infant. Encouraged to ask questions or concerns as needed. Ask if any pain or discomfort with latching infant. I will update the nursery staff on how long infant latched. A: Patient has questions on how to wake a sleeping to nurse. P: Continue to promote exclusively during hospital visit. Reach out to nurses with questions or concerns about . Heron Stock, CLC
--- NOTE | 2019-08-31 09:30 | NUR ---
PT SITTING UP IN BED. ATTEMPTING TO BREASTFEED INFANT. DENIES NEEDS OR C/O.
--- NOTE | 2019-08-31 10:21 | NUR ---
PT SITTING UP IN BED. CONSUMING BREAKFAST. C/O INCISIONAL PAIN OF "4" ON 0-10 PAIN SCALE. NORCO 10/325 GIVEN PO ORDERED. INSTRUCTED ON MED. VERBALIZES UNDERSTANDING.
--- NOTE | 2019-08-31 11:41 | NUR ---
PIV CONVERTED TO SALINE LOCK. FLUSHES EASILY WITH 10 ML NS. SITE CLEAR. CHOWDHURY DC'D WITH 650 ML OF DARK, YELLOW URINE NOTED IN BAG. PT OOB AND AMB TO BR. VOIDS MOD AMT OF UNMEASURED (PT MISSED SPECIPAN) BLOOD-TINGED URINE. PERICARE DONE PER PT. PANTIES AND PAD ON. GOWN CHANGED. PT BRUSHES TEETH AND AMB BACK TO BED. LADONNA ACTIVITY WELL. [id number] CLOT NOTED IN COMMODE.
--- NOTE | 2019-08-31 11:42 | NUR ---
INCISION OPEN TO AIR. PT STATES DR SHAW REMOVED BANDAGE. INCISION WITH LUKAS. NO REDNESS, SWELLING OR DRAINAGE NOTED. PERIPAD TO INCISION. PT INSTRUCTED ON CARE OF INCISION. VERBALIZES UNDERSTANDING.
[2019-08-31 12:01] VITALS: BP 119/67
--- NOTE | 2019-08-31 12:02 | NUR ---
PT REINSTRUCTED ON USE OF INCENTIVE SPIROMETER. VERBALIZES UNDERSTANDING OF USE AND IMPORTANCE.
--- NOTE | 2019-08-31 12:02 | NUR ---
PT SITTING UP IN BED. HOLDS WITH MUCH WARMTH SHOWN. VSS. PT DENIES NEEDS OR C/O.
--- NOTE | 2019-08-31 13:28 | NUR ---
PT SITTING UP IN BED. INFANT. C/O ABDOMINAL CRAMPING OF "2" ON 0-10 PAIN SCALE. MOTRIN 600 MG GIVEN PO ORDERED. PT INSTRUCTED ON MED. VERBALIZES UNDERSTANDING.
--- NOTE | 2019-08-31 14:45 | NUR ---
PT C/O ABDOMINAL CRAMPING OF "4" ON 0-10 PAIN SCALE. NORCO 10/325 GIVEN PO PER PT REQUEST. RHOGAM FULL DOSE GIVEM IM TO LEFT DELTOID. BANDAID TO SITE. PT LADONNA WELL.
--- NOTE | 2019-08-31 16:40 | NUR ---
PT AMBULATORY IN ROOM. VISITS WITH FAMILY. DENIES C/O OR NEEDS.
--- NOTE | 2019-08-31 17:30 | NUR ---
PT UP TO SHOWER. BED LINENS CHANGED.
--- NOTE | 2019-08-31 18:15 | NUR ---
PT AMBULATORY IN ROOM. STATES LADONNA SHOWER WELL. DENIES C/O OR NEEDS.
--- NOTE | 2019-08-31 18:38 | NUR ---
PT C/O INCISIONAL/ABDOMINAL PAIN OF "7" ON 0-10 PAIN SCALE. NORCO 10/325 GIVEN PO ORDERED. PT INSTRUCTED ON MED. VERBALIZES UNDERSTANDING.
--- NOTE | 2019-08-31 19:05 | NUR ---
PT AMB AROUND UNIT, THEN BACK TO ROOM, GAIT STEADY, FOB AT SIDE
[2019-08-31 19:47] VITALS: BP 125/74
--- NOTE | 2019-08-31 19:47 | NUR ---
ASSESSMENT PER FLOW SHEET, VS OBTAINED, SALINE LOCK IN RIGHT WRIST INTACT WITH NO REDNESS OR EDEMA, FF, ML, U/2, PT REPORTS LITE BLEEDING WITH A FEW SMALL CLOTS EARLIER IN THE DAY, BIKINI INC WITH LUKAS CDI WITH NO DRAINAGE NOTED, JUSTIN PAD OVER INC FOR COMFORT AND MOISTURE CONTROL, PT REPORTS FLATUS, NO BM, AND VOIDING WITH NO DIFFICULTY, PT RATES INC PAIN AND CRAMPING 01/31, INFORMED PT THAT I WILL CHECK ON HER MOTRIN AND ADM WHEN DUE, PT VERBALIZES UNDERSTANDING, REQUESTED AND SERVED FRESH H20, DENIES FURTHER NEEDS, IN OPEN CRIB CART AND FOB AT BEDSIDE
--- NOTE | 2019-08-31 20:16 | NUR ---
PT BOTTLE FEEDING INFANT, ADM MOTRIN PER MD ORDERS, SEE EMAR, FOB AT BEDSIDE
--- NOTE | 2019-08-31 21:33 | NUR ---
PT RESTING IN BED, REPORTS "FEELING BETTER", PAIN/CRAMPING 2/10, DENIES NEEDS AT THIS TIME, IN NSY, FOB AT BEDSIDE
--- NOTE | 2019-08-31 22:53 | NUR ---
C/O ABD CRAMPING 05/03, REQUEST PAIN MEDICATION. NORCO PROVIDED PER ORDER AND PT REQUEST. DENIES ADDITIONAL NEEDS. BED IN LOW POSITION WITH UPPER SIDE RAILS RAISED X2. CALL LIGHT AND PHONE WITHIN REACH. INFANT RESTING IN OPEN CRIB AT BEDSIDE. INTERVENTION REPORTED TO Christie DUARTE RN.
[2019-08-31 23:00] VITALS: BP 130/77
--- NOTE | 2019-08-31 23:00 | NUR ---
ANA MARIA ROBB, RN IN ROOM, REPORTS SHE ADM PAIN MED TO PT, VS OBTAINED PER THIS RN, PT DENIES FURTHER NEEDS, INFANT IN OPEN CRIB CART AND FOB AT BEDSIDE
--- NOTE | 2019-09-01 00:23 | NUR ---
PT SITTING UP IN BED, JUST FINISHED FEEDING INFANT, PT RATES PAIN/CRAMPING 3/10, DENIES NEEDS AT THIS TIME, FOB ASLEEP AT BEDSIDE
--- NOTE | 2019-09-01 02:14 | NUR ---
PT RESTING WITH EYES CLOSED, RESP QUIET, NO DISTRESS NOTED, LEFT UNDISTURBED AT THIS TIME, FOB ASLEEP AT BEDSIDE
[2019-09-01 04:22] VITALS: BP 125/80
--- NOTE | 2019-09-01 04:22 | NUR ---
PT RESTING WITH EYES CLOSED, AROUSES TO SOFT VERBAL STIMULATION, C/O INC PAIN/CRAMPING, ADM NORCO AND MOTRIN PER MD ORDERS, SEE EMAR, WITH FRESH H20, VS OBTAINED, INFORMED PT THAT I WILL BE BRINING INFANT IN FOR FEEDING, PT DENIES FURTHER NEEDS, FOB AT BEDSIDE
--- NOTE | 2019-09-01 04:33 | NUR ---
INFANT TO ROOM VIA OPEN CRIB CART PER THIS RN, BANDS CHECKED, PT INST ON HOW MUCH TO FEED , ALSO ASKED PT PER DR HEART, IF THEY WANTED CIRCUMCISED, PT AND FOB STATES "YES", DR HEART INFORMED
--- NOTE | 2019-09-01 05:33 | NUR ---
PT UP IN ROOM, FOB HOLDING , PT RATES PAIN 2/10, DENIES NEEDS AT THIS TIME
--- NOTE | 2019-09-01 07:30 | NUR ---
DR. SHAW ON UNIT MAKING ROUNDS. ORDERS RECEIVED TO DISCHARGE PATIENT HOME.
[2019-09-01 07:45] VITALS: BP 124/77
--- NOTE | 2019-09-01 07:45 | NUR ---
AM ASSESSMENT COMPLETED, SEE CHART FLOWSHEET. VS OBTAINED AND STABLE. PT IS AMBULATORY IN ROOM. PT DENIES ANY ISSUES WITH VOIDING, REPORTS LIGHT BLEEDING WITH NO CLOTS. REPORTS PASSING GAS, DENIES BM. PAIN RATES PAIN IN ABDOMEN AT 3/10. INCISION SITE WITHOUT REDNESS OR DRAINAGE, LUKAS INTACT. IV TO RIGHT WRIST REMOVED, CATH INTACT, PRESSURE DRESSING APPLIED. FOB AT BEDSIDE. PT DENIES ALL OTHER NEEDS AT THIS TIME. SRUPX2, CALL LIGHT AND PHONE WITHIN REACH.
--- NOTE | 2019-09-01 08:20 | NUR ---
PT IN BED SLEEPING AT THIS TIME. RESPIRATIONS EVEN AND UNLABORED, NO DISTRESS NOTED. SRUPX2, CALL LIGHT AND PHONE WITHIN REACH.
--- NOTE | 2019-09-01 09:05 | NUR ---
PT CALLS ON LIGHT. C/O ABDOMINAL CRAMPING OF "7" ON 0-10 PAIN SCALE. NORCO 10/325 GIVEN PO ORDERED. PT INSTRUCTED ON MED. VERBALIZES UNDERSTANDING.
--- NOTE | 2019-09-01 09:50 | NUR ---
PAIN REASSESSMENT COMPLETED BY THIS RN. PT RATES PAIN AT 2/10 IN ABDOMEN. PAIN MEDICATION EFFECTIVE. SLEEPING IN CRIB BEDSIDE. PT DENIES ALL OTHER NEEDS AT THIS TIME. SRUPX2, CALL LIGHT AND PHONE WITHIN REACH.
--- NOTE | 2019-09-01 10:15 | NUR ---
ROUNDING COMPLETED BY THIS RN. PT AMBULATORY TO BATHROOM. INFANT SLEEPING IN CRIB AT BEDSIDE. FOB AT BEDSIDE. PT DENIES ALL NEEDS AT THIS TIME.
--- NOTE | 2019-09-01 11:20 | NUR ---
ROUNDING COMPLETED BY THIS RN. PT AND SLEEPING. RESPIRATIONS EVEN AND UNLABORED, NO DISTRESS NOTED. SRUPX2, CALL LIGHT AND PHONE WITHIN REACH.
--- NOTE | 2019-09-01 12:15 | NUR ---
PT AND SLEEPING. RESPIRATIONS EVEN AND UNLABORED, NO DISTRESS NOTED. SRUPX2, CALL LIGHT AND PHONE WITHIN REACH.
--- NOTE | 2019-09-01 13:45 | NUR ---
PT BELL CLEANER LIGHT WITH C/O OF PAIN IN ABDOMEN 05/03. NORCO 10MG ADMIN, SEE EMAR. PT FEEDING WITH FOB AT BEDSIDE. PT DENIES ALL OTHER NEEDS AT THIS TIME.
[2019-09-01 13:48] VITALS: Ht 160 cm; Wt 97.5 kg
--- NOTE | 2019-09-01 14:24 | NUR ---
PT ASPHALT ROLLER OPERATOR LIGHT ASKING ABOUT DISCHARGE. THIS NURSE EXPLAINED THAT I WAS PREPARING DISCHARGE INSTRUCTIONS AT THIS TIME AND WOULD EDUCATE PT AND FOB ON PAPERWORK, PT STATED UNDERSTANDING. PT STATED PAIN MEDICATION EFFECTIVE, PAIN NOW AT 01/31.
[2019-09-01] MEDS ORDERED: IBUPROFEN600 MG PO (15:18)
[2019-09-01] MEDS ORDERED: HYDROCODON-ACE1 EA10 PO (15:18)
--- NOTE | 2019-09-01 15:28 | NUR ---
PT DISCHARGED HOME WITH FAMILY AND VIA WHEELCHAIR. PT DISCHARGE INSTRUCTIONS PROVIDED. PT VERABLIZES UNDERSTANDING ON FOLLOWUP APPTS AND DISCHARGE INSTRUCTIONS. SECURED IN CARSEAT.
--- NOTE | 2019-09-20 14:22 | OP ---
PATIENT NAME: JAME PAYNE MEDICAL RECORD: [id number] :89 LOCATION:[id number] ADMISSION DATE:08/30/19 SURGEON: DMITRIY QUINTERO MD DATE OF OPERATION: 08/30/2019 PREOPERATIVE DIAGNOSES: 1. Gestational hypertension at 38 weeks. 2. History of previous section. POSTOPERATIVE DIAGNOSES: 1. Gestational hypertension at 38 weeks. 2. History of previous section. PROCEDURE: A repeat low transverse section and bilateral tubal ligation via modified Uchida procedure. SURGEON: Dmitriy Quintero MD ANESTHESIA: Regional via spinal. INTRAVENOUS FLUIDS: Per anesthesia record. ESTIMATED BLOOD LOSS: 1000 cc. SPECIMENS: Placenta and cord for gases, and bilateral tubal segments. COMPLICATIONS: None apparent. PROCEDURE IN DETAIL: The patient was taken to the operating room where regional anesthesia was achieved without any difficulty. The patient was then prepped and draped in normal sterile fashion in the dorsal supine position. SCDs were on and functioning normally and a Aparicio catheter had been placed and it was draining freely. Following prep and drape, a Pfannenstiel skin incision was made and extended down to the underlying subcutaneous fat to level of fascia. The fascia was then excised in the midline and extended bilaterally using the Silva scissors and Bovie cautery. The superior and inferior aspects of the fascial incision were then grasped with Amanda clamps times 2, tented upward, and sharply dissected from the underlying rectus muscle using the Bovie cautery and Silva scissors. At this point, the peritoneum was entered sharply at the superior aspect of the incision. The peritoneal incision was extended bilaterally and inferiorly using the Metzenbaum scissors. A bladder blade was placed into the pelvis and a bladder flap was created by excising the anterior leaf of the broad ligament across the lower uterine segment. This was further developed both sharply and digitally. The bladder blade was then replaced over the bladder and a low transverse incision was made in the uterus. This incision was extended superiorly and inferiorly using the Pelosi method and the head was delivered atraumatically followed by the body. was bulb suctioned upon delivery. Cord was clamped times 2, cut, and the infant was handed to the awaiting nursery team. Cord was obtained for gases and the placenta was then removed manually intact, 3-vessel cord was noted. The uterus was exteriorized, cleared of all clots and debris and vigorously massaged until good uterine tone was noted. The uterine incision was repaired with 0 Vicryl in a running locked fashion times 2 with good hemostasis noted. Attention was then turned to the fallopian tubes were in the mid segment of the bilateral tubes. A defect was made in each mesosalpinx in an avascular area. Curved Julissa clamps OPERATIVE REPORT [id number] JAME PAYNE were then placed proximally and distally across the tubes bilaterally. This intervening tubal section was then removed and the tubal stumps were then free tied with 2-0 Vicryl and then oversewed distally with good hemostasis noted. This was performed on both fallopian tubes. Good hemostasis noted from the tubal site and the incision site. Posterior cul-de-sac was then thoroughly irrigated and uterus was returned to the pelvis. The counts were correct times 2 for needles, sponges, and instruments. At this point, the fascia was repaired with 0 loop PDS times 1 and the skin was repaired with maryuri. The patient tolerated the procedure well, transported to postanesthesia recovery stable without incident. TRANSINT:[id number] Voice Confirmation ID: [id number] DOCUMENT ID: [id number] DMITRIY QUINTERO MD at 1422 CC: [id number] DICTATION DATE: 09/17/19 1211 LAND SURVEYING MANAGER: 09/17/19 1243 DIS IN 09/01/19 [facility] [address] [place] [address]
== END 2019-09-01 14:51 | disposition home or self-care (01) | DRG 785 ==
LOC: D.LDO 11:59 → D.LD 15:01
PROVIDERS: Obstetrics & Gynecology; ADMIT Obstetrics & Gynecology; ATTEND Obstetrics & Gynecology
PROC: 10D00Z1 Extraction of Products of Conception, Low, Open Approach (ICD-10-PCS; principal; 2019-08-30 14:45)
PROC: 0UB70ZZ Excision of Bilateral Fallopian Tubes, Open Approach (ICD-10-PCS; 2019-08-30 14:45)
DX: O13.4 Gestational [pregnancy-induced] hypertension without significant proteinuria, complicating childbirth (principal); Z3A.38 38 weeks gestation of pregnancy; Z37.0 Single live birth; O34.211 Maternal care for low transverse scar from previous cesarean delivery; O99.324 Drug use complicating childbirth; F12.90 Cannabis use, unspecified, uncomplicated; F41.8 Other specified anxiety disorders